=== PATIENT | male | born 1940 | race Caucasian/White ===

== ENCOUNTER 2017-01-16 16:03 | Inpatient (IN) | payer BC ==
--- NOTE | ~2017-01-16 | HP ---
History And Physical [place] [id number] [facility] [place]. [address] NAME: ALYCE MENCHACA : 42 STATUS : ADM IN [facility]#: [id number] AGE: 76 ADM/REG DATE : 01/16/17 MR#: [id number] REPORT SERV DATE: 01/17/17 DICTATED BY: BRYAN SETH DATE: 01/16/17 REPORT STATUS : Draft TRANSCRIBED BY: MODVickey DATE: 01/16/17 DATE OF ADMISSION: 01/16/2017 CHIEF COMPLAINT: This is a 76-year-old white male who was triaged in the emergency room today 01/16/2017, at 1342 hours with a chief complaint of dizziness and fall. After evaluation in the emergency room, he was referred to the Hospitalist Service for admission. He is now seen by the undersigned and admitted. The history was obtained from the patient, his provides some information. Records are reviewed from a previous hospitalization here in 2011. HISTORY OF PRESENT ILLNESS: He woke up early this morning, perhaps at 4 a.m. needing to void. When he got out of bed, he felt dizzy. This was not a near syncopal dizziness nor was it a vertiginous dizziness. He did not have any nausea. He felt imbalance. He held onto the bed. He had a mild headache and both legs felt weak. He fell but did not think he sustained any injury. He did not pass out. He did not have any change in his vision. No double vision. No focal numbness or tingling. He has not had any change in his swallowing. He is not convinced he has had a change in his speech but his indicates that she and their children have thought that he has had some change in his speech over the last two weeks. He has not had any fever or chills. He has some cough which is unchanged. He has not had chest pain or shortness of breath. No nausea, vomiting, heart burn, abdominal pain, or diarrhea. No rectal bleeding. No dysuria or hematuria. He has not had any itching or rash. No focal joint pain. He has no history of known cancer, VTE, COPD, pulmonary fibrosis, or sleep apnea. He has no previous history of stroke, seizure, gastrointestinal bleeding, hepatitis, pancreatitis, diverticulitis, or colitis. He has no history of any systemic rheumatic disease and is not on any immunosuppressive agents. PAST MEDICAL HISTORY: His past medical history does include: 1. Hypertension, not on treatment. 2. Diabetes, not on treatment. 3. Dyslipidemia, not on treatment. 4. CAD, multi-vessel, status post urgent CABG x3, 03/07/2012. 5. Chronic tobacco use though minimal now. PAST SURGICAL HISTORY: See above. ALLERGIES OR INTOLERANCE: None. CURRENT HOME MEDICATIONS: No prescription, multivitamin only. 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 Occasionally smokes. No alcohol use. with three healthy children. History And Physical [address] [place]. [address] NAME: ALYCE MENCHACA : 42 STATUS : ADM IN [facility]#: [id number] AGE: 76 ADM/REG DATE : 01/16/17 MR#: [id number] REPORT SERV DATE: 01/17/17 DICTATED BY: BRYAN SETH DATE: 01/16/17 REPORT STATUS : Draft TRANSCRIBED BY: FADUMO DATE: 01/16/17 FAMILY HISTORY: Positive for coronary artery disease in mother and father. He has no siblings. REVIEW OF SYSTEMS: Complete, done with the patient and in room and negative except as noted above. PHYSICAL EXAMINATION: ADMISSION ER VITAL SIGNS: Blood pressure 181/93, temperature 97.4, pulse 72, respirations 16, and O2 sat of 97%. During my exam, blood pressure increased to 189/115. GENERAL: This is a [id number] white male, examined in the ER room 11. He is alert, oriented, cooperative, conversant, and appropriate. SKIN: Warm and dry. No rash, petechiae, or ecchymoses. NODES: No palpable axillary, cervical, or inguinal. HEENT: Atraumatic with symmetric facies. Lids, sclerae, and conjunctivae negative. No xanthelasma, scleral icterus, or conjunctival petechiae or injection. Pupils equal, round, and reactive to light. Extraocular movements intact. No nystagmus. Can visualize bilateral fundi, and disc margins are sharp. No hemorrhages or exudates within 1 disc diameter of the optic disc. Hearing intact. External ears negative. Cannot see TMs. Nose negative. Anterior nares without mucus or blood. Lips, gums, mucosa, soft palate, posterior pharynx, and tongue negative. NECK: No visible JVD or asymmetry. No palpable mass, goiter, or tenderness. Trachea midline. Nontender. Not fixed. LUNGS: Clear to auscultation. Normal respiratory effort. HEART: PMI not palpable. Regular rate and rhythm. No murmur, gallop, rub, or click. Pulses 2+ symmetric radial, carotid, femoral, and popliteal. Absent dorsalis pedis and posterior tibial. ABDOMEN: Soft, nontender to palpation. No guarding, rebound, or rigidity. Cannot feel liver, spleen, kidneys, or aortic pulsation. UPPER AND LOWER EXTREMITIES: No active synovitis, clubbing, or edema. Note diminished to absent foot hair. NEUROLOGIC: Mental status normal. Cranial nerves 2 through 12 normal. Deep tendon reflexes symmetric. Knee jerk, triceps, and biceps 1 to 2+. Negative Naomy. Downgoing toes. Cerebellar testing, normal finger to nose and heel to law. Motor: Normal fine motor movements. Strength: Symmetric upper and lower extremity, proximal and distal. Drift none. Sensory intact to touch and temperature. PSYCHIATRIC: Appropriate mood and affect. DATA: Chest x-ray: No acute cardiopulmonary disease with normal size heart and clear lung florentino. EKG: Reviewed sinus rhythm. No acute ST-segment changes. Stat CT brain ordered, moderate atrophy with extensive chronic white matter ischemic change, no acute infarct or hemorrhage. Sodium 137, potassium 4.1, chloride 103, CO2 of 30, BUN 13, creatinine 0.88, glucose 241, calcium 9.3, magnesium 2.1. Troponin 0.15. White count 6.1, hemoglobin 15.4, and platelets 153,000. History And Physical [address] [address] NAME: ALYCE MENCHACA : 42 STATUS : ADM IN PAT#: [id number] AGE: 76 ADM/REG DATE : 01/16/17 MR#: [id number] REPORT SERV DATE: 01/17/17 DICTATED BY: BRYAN SETH DATE: 01/16/17 REPORT STATUS : Draft TRANSCRIBED BY: MODVickey DATE: 01/16/17 ASSESSMENT: This is a 76-year-old white male with: 1. Early a.m. fall without injury, without syncope, without vertigo. 2. Imbalance/dizziness. 3. Change in speech per and family, not evident on exam. 4. Uncontrolled hypertension. 5. Uncontrolled diabetes. 6. Dyslipidemia, off therapy. 7. Elevated troponin with history of coronary artery disease, post CABG in 2011, and no current chest pain or chest pain equivalent. 8. Chronic tobacco use. 9. Peripheral arterial disease by exam. PLAN: Telemetry admission to evaluate for arrhythmias. Follow up troponin and EKG. Get echocardiography. Get carotid ultrasound imaging. Pursue further brain imaging with MRI. Initiate antihypertensive therapy with two drugs today. Begin aspirin and statin therapy. Further diagnostic and therapeutic considerations. Cardiology and Neurology evaluations pending above. DD/MODL Bryan Seth M.D. / [id number] CC: Becki Obrien D.O.
--- NOTE | ~2017-01-16 | DS ---
Discharge Summary [facility] [address] [place]. [address] NAME: ALYCE MENCHACA : 42 STATUS : ADM IN PAT#: [id number] AGE: 76 ADM/REG DATE : 01/16/17 MR#: [id number] REPORT SERV DATE: 01/18/17 DICTATED BY: WYATT HERNANDEZ DATE: 01/18/17 REPORT STATUS : Draft TRANSCRIBED BY: FADUMO DATE: 01/18/17 ADMISSION DATE: 01/16/2017 DISCHARGE DATE: 01/18/2017 DISCHARGE DIAGNOSES: 1. Transient ischemic attack. 2. Previous ischemic strokes. 3. Uncontrolled hypertension, off medications. 4. Uncontrolled diabetes mellitus type 2 with A1c 9.4% and peripheral neuropathy, off medications. 5. History of coronary artery disease with bypass in 2011, with current demand ischemia. HISTORY: This patient got up in the middle of the night to go to the bathroom, was extremely unsteady on his gait, fell, scraped his right elbow, did not pass out, did not have vertigo, nausea, or headache. He came to the ER at [facility] and was referred to our team for inpatient care. Imaging included CT scan of the brain without contrast, revealed moderate atrophy with extensive chronic white matter ischemic changes, but no acute infarction or hemorrhage. Carotid ultrasound revealed category 2 left carotid stenosis, with 50% to 69% stenosis, left vertebral unremarkable, right vertebral unremarkable. MRI of the brain revealed evidence of an old ischemic infarct upper reji on the left, and old right cerebellar ischemic infarction. No acute abnormality was noted. There is atrophy and deep white matter changes. The patient was placed on aspirin and statin, and blood pressure control was advised to the patient. He had stopped his blood pressure medicines, because he stated he felt like he did not need it. I have discussed with the patient and his the importance of blood pressure control to reduce his risk of future strokes and heart disease. He also had discontinued his diabetes medication, because he stated the metformin upset his stomach. 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 His A1c is currently 9.4%. We have recommended oral agents and diet, and close followup with his PCP. He does describe pretty classic peripheral neuropathy in his feet and would like something for that. He had also discontinued his blood pressure medications, so, we have started those back as well. They can be titrated by his PCP. He did have mild elevation of troponin 0.15, 0.14, and 0.15. No chest pain. His EKG did not reveal any active ischemia. Echocardiogram showed left ventricular size normal, left ventricular ejection fraction low normal. Mild calcific aortic valve changes, but without significant aortic stenosis. [facility] Dr. Chu Santiago met with the patient, recommended aspirin, statin, and beta irish, and blood pressure control, and diabetes control, and follow up with Dr. Merino in the office. Discharge Summary [place] [id number] [facility] [place]. [address] NAME: ALYCE MENCHACA : 42 STATUS : ADM IN [facility]#: [id number] AGE: 76 ADM/REG DATE : 01/16/17 MR#: [id number] REPORT SERV DATE: 01/18/17 DICTATED BY: WYATT HERNANDEZ DATE: 01/18/17 REPORT STATUS : Draft TRANSCRIBED BY: FADUMO DATE: 01/18/17 DISCHARGE MEDICATIONS: Norvasc 5 mg daily, aspirin 81 mg daily. Lipitor 40 mg daily. Tylenol 650 q.6 hours p.r.n. pain. Metoprolol 12.5 mg b.i.d., multivitamin once a day. Vitamin B12 500 mcg daily, glipizide 5 mg half tablet b.i.d. with meals, gabapentin 300 mg p.o. at bedtime which can be titrated by his PCP. I spent 36 minutes today with the patient and with his and with discharge planning. DICTATED BY: Becki Pena/FADUMO Wyatt Hernandez M.D. / [id number] CC: Becki Obrien D.O. James Hoback Jr., M.D.
--- NOTE | ~2017-01-16 | CN ---
Consultation Report [facility] [address] [place]. [address] NAME: ALYCE MENCHACA : 42 STATUS : ADM IN [facility]#: [id number] AGE: 76 ADM/REG DATE : 01/16/17 MR#: [id number] REPORT SERV DATE: 01/18/17 DICTATED BY: KATHLEEN NAPIER DATE: 01/17/17 REPORT STATUS : Draft TRANSCRIBED BY: FADUMO DATE: 01/17/17 CARDIOLOGY CONSULTATION NOTE DATE OF CONSULTATION: 01/17/2017 PRIMARY CURED [employer]AT P[employer]ING SUPERVISOR: Jonathan Merino M.D. CHIEF COMPLAINT: Dizziness. REASON FOR CONSULTATION: Abnormal troponin. SOURCE: The patient, his family, and the chart. HISTORY OF PRESENT ILLNESS: Mr. Menchaca is a very pleasant 76-year-old white man with history of coronary artery disease, status post coronary artery bypass grafting in 2011 at [facility]. His hr specialist is Dr. Merino. He was in his usual state of health until 4 a.m. yesterday when he noticed severe sudden disequilibrium and dizziness. He had several falls, came to [facility] about 1 p.m. yesterday and was admitted for further care. He has undergone multiple tests, but still feels dizzy. He does not feel improved at all. He has not had any loss of consciousness or syncope. No palpitations, chest pain, or shortness of breath. Because of abnormal troponin, we were asked to see him in consultation. REVIEW OF SYSTEMS: All other systems are negative. ALLERGIES: NO KNOWN DRUG ALLERGIES. MEDICATIONS: At home included vitamin B12, multivitamins, and cough drops. CARDIAC RISK FACTORS: Diabetes, hypertension, cholesterol, former tobacco. Denies family history at young age. PAST MEDICAL HISTORY: Significant for coronary artery disease status post coronary artery bypass grafting in [address] [facility] [address] Hatch. Followed by Dr. Merino in the office. SOCIAL HISTORY: [place] , three children, who are alive and well. He works driving a tour bus. FAMILY HISTORY: Father at age 67 of myocardial infarction. Mother at age 74 of myocardial infarction. PHYSICAL EXAMINATION: GENERAL: He is a well-developed, well-nourished, elderly white man, in no acute distress. VITAL SIGNS: Blood pressure is 154/78, pulse 78, temperature 97.5. Weight is 83.9 kilos. Consultation Report [facility] [address] [place]. [address] NAME: ALYCE MENCHACA : 42 STATUS : ADM IN PAT#: [id number] AGE: 76 ADM/REG DATE : 01/16/17 MR#: [id number] REPORT SERV DATE: 01/18/17 DICTATED BY: KATHLEEN NAPIER DATE: 01/17/17 REPORT STATUS : Draft TRANSCRIBED BY: FADUMO DATE: 01/17/17 HEENT: Sclerae anicteric. Lips without cyanosis. Carotids 2+ and symmetrical. No bruits. No JVD. No thyromegaly. LUNGS: Clear to auscultation. No use of accessory muscles. HEART: Regular rate and rhythm without murmur, gallop, or rub. CHEST: Healed sternotomy. ABDOMEN: Positive bowel sounds. Soft, nontender. EXTREMITIES: Pulses 2+ and symmetrical. No cyanosis, clubbing, or edema. BACK: No CVA tenderness. MUSCULOSKELETAL: Good tone. NEURO: Alert and oriented x3. EKG reveals sinus rhythm, QTc of 497 milliseconds, otherwise normal tracing. Echocardiogram normal left ventricular systolic function. LVEF was normal. Mildly calcified aortic valve without significant aortic stenosis. Carotid ultrasound grade 2 on the left, left vertebral antegrade; right carotid grade 1, right vertebral antegrade. The sodium 141, potassium 4.0, chloride 105, CO2 of 31, glucose 169, BUN 15, creatinine 0.81, cholesterol 181, HDL 27, LDL 103, triglycerides 258. The white count is 6.1, hemoglobin 15.4, hematocrit 44.0, platelets 153,000. INR 1.1. PTT of 31.4. The chest x-ray, no acute process, pleural effusions from February 2012 have resolved. The brain CT without contrast, no acute infarct or hemorrhage, moderate atrophy with extensive chronic white matter ischemic change. The troponin was 0.15, the second 0.14, the third 0.15 with no evolution. The glycated hemoglobin is 9.4. The TSH 1.47. IMPRESSION: 1. Dizziness and disequilibrium of unclear cause, consider the possibility of stroke. 2. Hypertension, off medicine, suboptimal control. 3. Diabetes mellitus, off medicines, suboptimal control. 4. Hyperlipidemia, off medicines. 5. Coronary artery disease, status post coronary artery bypass grafting in 2011. 6. Minor troponin elevation without any evolution, consider chronic minor elevation versus demand ischemia. 7. Normal LV systolic function by echo. 8. Grade 2 left carotid. RECOMMENDATIONS: 1. Check CPK and MB. 2. I agree with aspirin, statin, and beta-irish therapy. 3. Blood pressure control. 4. Diabetic control. 5. The above was discussed with the patient and family at length and in detail. 6. The patient just had MRI scan results not yet available. 7. Not much else to add. Consultation Report [address] [place]. [address] NAME: ALYCE MENCHACA : 42 STATUS : ADM IN PAT#: [id number] AGE: 76 ADM/REG DATE : 01/16/17 MR#: [id number] REPORT SERV DATE: 01/18/17 DICTATED BY: KATHLEEN NAPIER DATE: 01/17/17 REPORT STATUS : Draft TRANSCRIBED BY: FADUMO DATE: 01/17/17 BINU/FADUMO Kathleen Napier M.D. / [id number] CC: Becki Obrien D.O.
[2017-01-16 14:11] LABS: BASOPHILS 0.2 %; BASOPHILS ABSOLUTE 0.01 10/3/uL (0.0-0.16); EOSINOPHILS ABSOLUTE 0.06 10/3/uL (0.0-0.53); ER CBC TAT 0 Hrs 03 Mins; IMMATURE GRANULOCYTES 0.2 %; IMMATURE GRANULOCYTES ABSOLUTE 0.01 10/3/uL (0.0-0.11); LYMPHOCYTES 28.5 %; LYMPHOCYTES ABSOLUTE 1.73 10/3/uL (0.67-4.30); MEAN CORPUSCULAR HEMOGLOB 31.3 pg (26.0-34.0); MEAN CORPUSCULAR VOLUME 89.4 fL (80-100); MEAN PLATELET VOLUME 10.6 fL (9.2-13.0); MONOCYTES 8.1 %; MONOCYTES ABSOLUTE 0.49 10/3/uL (0.21-1.20); NEUTROPHILS ABSOLUTE 3.77 10/3/uL (2.02-8.40); PLATELET COUNT 153 10/3/uL (150-400); RBC DISTRIBUTION WIDTH 13.1 % (12.0-16.0); WHITE BLOOD CELLS 6.1 10/3/uL (4.5-10.5)
[2017-01-16 14:12] LABS: HEMOGLOBIN 15.4 g/dL (13.6-17.8); MANUAL DIFF NO %; RED CELL COUNT 4.92 10/6/uL (4.7-6.1)
[2017-01-16 14:18] LABS: INTERNATIONAL NORMAL RATI 1.1 UNITS (-); PROTIME (NOT ORD) 13.8 SEC (12.0-14.5)
[2017-01-16 14:19] LABS: PARTIAL THROMBO TIME 31.4 SEC (22.5-37.2)
[2017-01-16 14:29] LABS: CALCIUM, SERUM 9.3 MG/DL (8.5-10.4); CHLORIDE, SERUM 103 MMOL/L (96-112); CO2 (CARBON DIOXIDE) 30 MMOL/L (24-34); CREATININE 0.88 MG/DL (0.70-1.30); GFR AFRICAN AMERICAN 97 ML/MIN (>=60); GFR NON AFRICAN AMERICAN 84 ML/MIN (>=60); POTASSIUM, SERUM 4.1 MMOL/L (3.5-5.3); SODIUM, SERUM 137 MMOL/L (135-148)
[2017-01-16 14:30] LABS: BUN (BLOOD UREA NITROGEN) 13 MG/DL (6-23); CHEST PAIN PROFILE TAT 0 Hrs 22 Mins; GLUCOSE, SERUM 241 MG/DL (60-99); TROPONIN I 0.15 NG/ML (<0.05)
[~2017-01-16 16:03] MED LIST: ASAB PO; EXFORGE1 TA1 PO; EXFORGE1 TA3 PO; FISH OIL1200 MG PO; GLUCPH PO; LOP25 PO; NITROSTAT0.4 MG SL; ZOCOR10 PO
[2017-01-16] MEDS ORDERED: VITAMIN B-121000 MC1 SL (16:53)
[2017-01-16] MEDS ORDERED: MULTIVIT/MIN PO (16:53)
[2017-01-16] MEDS ORDERED: [UNRECOGNIZED DRUG - OTHER] PO (16:54)
[2017-01-16 19:38] LABS: SGOT(AST) 19 U/L (5-40); SGPT(ALT) 22 U/L (5-65); TOTAL BILIRUBIN 0.5 MG/DL (0-1.2); TOTAL PROTEIN 7.7 G/DL (6.0-8.5)
[2017-01-16 19:40] LABS: ALKALINE PHOSPHATASE 64 U/L (45-117); DIRECT BILIRUBIN < 0.1 MG/DL (0.0-0.4); INDIRECT BILIRUBIN(NOT ORDER) 0.4 MG/DL (0.1-0.9)
[2017-01-17 06:39] LABS: BUN (BLOOD UREA NITROGEN) 15 MG/DL (6-23); CALCIUM, SERUM 9.2 MG/DL (8.5-10.4); CHLORIDE, SERUM 105 MMOL/L (96-112); CHOL/HDL RATIO(NOT ORDER) 6.7 (0-5); CHOLESTEROL 181 MG/DL (< 200); CO2 (CARBON DIOXIDE) 31 MMOL/L (24-34); CREATININE 0.81 MG/DL (0.70-1.30); GFR AFRICAN AMERICAN 101 ML/MIN (>=60); GFR NON AFRICAN AMERICAN 87 ML/MIN (>=60); HDL CHOLESTEROL 27 MG/DL (> 39); LDL CHOLESTEROL 103 MG/DL (< 130); NON-HDL CHOLESTEROL 154 MG/DL (< 160); SODIUM, SERUM 141 MMOL/L (135-148); TRIGLYCERIDE 258 MG/DL (< 150)
[2017-01-17 06:40] LABS: GLUCOSE, SERUM 169 MG/DL (60-99)
[2017-01-18 06:45] LABS: CPK 29 U/L (0-200)
[2017-01-18 06:46] LABS: CK-MB < 0.5 NG/ML
[2017-01-18] MEDS ORDERED: NORV5 PO (09:32)
[2017-01-18] MEDS ORDERED: ASAB PO (09:33)
[2017-01-18] MEDS ORDERED: LIPITOR40 PO (09:33)
[2017-01-18] MEDS ORDERED: LOP25 PO (09:34)
[2017-01-18] MEDS ORDERED: T PO (09:35)
[2017-01-18] MEDS ORDERED: GLUCOTROL5 PO (09:37)
[2017-01-18] MEDS ORDERED: NEUR300 PO (09:38)
== END 2017-01-18 14:04 | disposition home or self-care (01) | DRG 69 ==
LOC: ER 16:03 → CDU1 16:18 → CDU2 16:30 → 1SO 16:52
PROVIDERS: Emergency Medicine; Internal Medicine; Internal Medicine Cardiovascular Disease
DX: G45.9 Transient cerebral ischemic attack, unspecified (principal); I24.8 Other forms of acute ischemic heart disease; E11.40 Type 2 diabetes mellitus with diabetic neuropathy, unspecified; I16.0 Hypertensive urgency; I25.10 Atherosclerotic heart disease of native coronary artery without angina pectoris; E11.65 Type 2 diabetes mellitus with hyperglycemia; E78.5 Hyperlipidemia, unspecified; F17.210 Nicotine dependence, cigarettes, uncomplicated; W18.30XA Fall on same level, unspecified, initial encounter; Z95.1 Presence of aortocoronary bypass graft; Z86.73 Personal history of transient ischemic attack (TIA), and cerebral infarction without residual deficits
CPT/HCPCS: 70450; 70553; 71020; 80048; 80061; 80076; 81001; 82550; 82553; 82607; 82962; 83036; 83735; 84443; 84484; 85025; 85610; 85730; 93005; 93306; 93880; 97161-GP; 99285; A9270-GY; A9577